=== PATIENT | female | born 1965 | race Caucasian/White ===

== ENCOUNTER → 2017-01-04 | Outpatient (CLI) | payer BC, OTHER ==
--- NOTE | 2017-01-04 08:06 | REP ---
PA and lateral chest: Comparison is 04/28/2015. The lung raphael are clear. The cardiac size is normal The mary, mediastinum, and bony thorax are unremarkable. Impression: Negative PA and lateral chest. Surgical clips are again noted in the abdominal right upper quadrant. There is no interval change. Signed by Raf Moran MD 01/04/2017 07:57 A
[2017-01-04 08:09] LABS: MEAN CORPUSCULAR HEMOGLOBIN 31.6 pg (27.0-33.0); MEAN CORPUSCULAR HGB CONC 34.8 g/dl (32.0-36.5); WHITE BLOOD COUNT 11.5 K/mm3 (4.0-10.0)
[2017-01-04 08:42] LABS: ALBUMIN 3.8 GM/DL (3.2-5.2); ALBUMIN/GLOBULIN RATIO 1.23 (1.00-1.93); ALKALINE PHOSPHATASE 73 U/L (45-117); ALT/SGPT 26 U/L (12-78); ANION GAP 5 MEQ/L (8-16); AST/SGOT 12 U/L (15-37); BILIRUBIN,TOTAL 0.6 MG/DL (0.2-1.0); BLOOD UREA NITROGEN 18 MG/DL (7-18); CALCIUM LEVEL 9.2 MG/DL (8.5-10.1); CARBON DIOXIDE LEVEL 28 MEQ/L (21-32); CHLORIDE LEVEL 107 MEQ/L (98-107); CHOLESTEROL LEVEL 249 MG/DL (<200); CREATININE FOR GFR 0.83 MG/DL (0.55-1.02); GLOMERULAR FILTRATION RATE > 60.0 (>51); GLUCOSE, FASTING 127 MG/DL (70-105); POTASSIUM SERUM 4.6 MEQ/L (3.5-5.1); SODIUM LEVEL 140 MEQ/L (136-145); TOTAL PROTEIN 6.9 GM/DL (6.4-8.2); TRIGLYCERIDES LEVEL 154 MG/DL (<150)
--- NOTE | 2017-01-05 13:39 | ECGEPIP ---
Stationary ECG Study [facility] Test Date: 2017-01-04 Pat Name: REAGAN EID Department: Room: - Gender: F [place] Dipper: : 1965 Requested By: Homer Butler Order Number: [id number] Reading MD: Roman Carter Measurements Intervals [place] Rate: 80 P: 64 AK: 155 QRS: 48 QRSD: 90 T: 51 QT: 376 QTc: 435 Interpretive Statements SINUS RHYTHM POSSIBLE LEFT ATRIAL ENLARGEMENT NO CHANGE SINCE 04/28/15 Electronically Signed On 01-05-2017 13:39:08 EDT by Roman Carter
== END ==
LOC: M LAB 07:14
PROVIDERS: ATTEND Family Medicine
DX: E78.5 Hyperlipidemia, unspecified (principal); E03.9 Hypothyroidism, unspecified; E55.9 Vitamin D deficiency, unspecified

== ENCOUNTER → 2018-04-30 | Outpatient (CLI) | payer BC, OTHER ==
[2018-04-30 09:14] LABS: HEMATOCRIT 47.1 % (36.0-47.0); HEMOGLOBIN 16.1 g/dl (12.0-15.5); MEAN CORPUSCULAR HEMOGLOBIN 30.4 pg (27.0-33.0); MEAN CORPUSCULAR HGB CONC 34.2 g/dl (32.0-36.5); MEAN CORPUSCULAR VOLUME 88.9 fl (80.0-96.0); PLATELET COUNT, AUTOMATED 416 10^3/uL (150-450); RED CELL DISTRIBUTION WIDTH 13.2 % (11.5-14.5); WHITE BLOOD COUNT 9.9 10^3/uL (4.0-10.0)
[2018-04-30 09:20] LABS: ESTIMATED AVERAGE GLUCOSE 120 MG/DL (60-110); HEMOGLOBIN A1c 5.8 %
[2018-04-30 09:38] LABS: ALBUMIN/GLOBULIN RATIO 1.25 (1.00-1.93); ALKALINE PHOSPHATASE 86 U/L (45-117); ALT/SGPT 24 U/L (12-78); ANION GAP 6 MEQ/L (8-16); AST/SGOT 12 U/L (7-37); BILIRUBIN,TOTAL 0.8 MG/DL (0.2-1.0); BLOOD UREA NITROGEN 12 MG/DL (7-18); CALCIUM LEVEL 9.8 MG/DL (8.5-10.1); CARBON DIOXIDE LEVEL 29 MEQ/L (21-32); CHLORIDE LEVEL 104 MEQ/L (98-107); CHOLESTEROL LEVEL 278 MG/DL (<200); CHOLESTEROL RISK RATIO 5.791 (<5); CREATININE FOR GFR 0.81 MG/DL (0.55-1.30); GLOMERULAR FILTRATION RATE > 60.0 (>51); GLUCOSE, FASTING 108 MG/DL (70-100); HDL CHOLESTEROL 48 MG/DL (>40); LDL CHOLESTEROL 201 MG/DL (<100); NON-HDL-C 230 MG/DL; POTASSIUM SERUM 4.9 MEQ/L (3.5-5.1); SODIUM LEVEL 139 MEQ/L (136-145); TOTAL PROTEIN 7.2 GM/DL (6.4-8.2); TRIGLYCERIDES LEVEL 146 MG/DL (<150)
[2018-04-30 09:39] LABS: TOTAL 25(OH) VITAMIN D 52.4 NG/ML (30.0-100.0)
== END ==
LOC: M LAB 07:08
DX: J44.9 Chronic obstructive pulmonary disease, unspecified (principal); E03.9 Hypothyroidism, unspecified; R53.83 Other fatigue
CPT/HCPCS: 93005

== ENCOUNTER → 2018-04-30 | Outpatient (CLI) | payer BC, OTHER | LOC: M RAD 07:04 | DX: Z12.31 Encounter for screening mammogram for malignant neoplasm of breast (principal); N60.31 Fibrosclerosis of right breast; N60.32 Fibrosclerosis of left breast | CPT/HCPCS: 71046 ==

== ENCOUNTER 2019-02-12 19:26 | Emergency (ER) | payer BC, OTHER ==
[~2019-02-12] VITALS: Ht 157.5 cm; Wt 68.2 kg
[2019-02-12] MEDS ORDERED: DITR5TAB PO (19:43)
[2019-02-12] MEDS ORDERED: ESTR3TA (19:43)
[2019-02-12] MEDS ORDERED: VITA500045 (19:43)
[2019-02-12] MEDS ORDERED: KETOROLAC TROMETHAMINE 10 MG TAB PO ONE (22:00)
[2019-02-12 23:49] VITALS: BP 172/97
--- NOTE | 2019-02-13 02:25 | REP ---
Clinical: Trauma. Technique: AP, lateral, bilateral oblique views of the left foot. Findings: There is a nondisplaced comminuted fracture at the base of the fifth metatarsal bone with overlying soft tissue swelling. Remainder examination demonstrates normal age-related changes. Impression: Nondisplaced fracture at the base of the fifth metatarsal bone. Electronically Signed by Roby Julien MD 02/13/2019 02:17 A
--- NOTE | 2019-02-13 02:29 | REP ---
Clinical: Trauma. Technique: AP, lateral, bilateral oblique views of the left ankle. Findings: Soft tissue swelling appreciated. There is a fracture at the base of the fifth metatarsal bone. No other fracture dislocation identified. Ankle mortise appears intact. Impression: Ankle swelling Nondisplaced fracture of the fifth metatarsal base. Electronically Signed by Roby Julien MD 02/13/2019 02:20 A
--- NOTE | 2019-02-13 07:22 | ECGEPIP ---
[facility] - ED Test Date: 2019-02-12 Pat Name: REAGAN EID Department: Room: - Gender: Female [employer] Official: JESUS : 1965 Requested By: ROSENDO ARTHUR PA-C Order Number: [id number] Reading MD: Tito Hyde Measurements Intervals [place] Rate: 96 P: 74 PA: 159 QRS: 63 QRSD: 93 T: 45 QT: 352 QTc: 445 Interpretive Statements SINUS RHYTHM POSSIBLE LEFT ATRIAL ENLARGEMENT POSSIBLE LEFT VENTRICULAR HYPERTROPHY SIMILAR TO 04/30/18 Electronically Signed on 02-13-2019 7:21:58 EDT by Tito Hyde
== END 2019-02-12 23:50 | disposition home or self-care (01) ==
LOC: M ED 19:26
DX: S92.355A Nondisplaced fracture of fifth metatarsal bone, left foot, initial encounter for closed fracture (principal); X50.1XXA Overexertion from prolonged static or awkward postures, initial encounter; Y92.480 Sidewalk as the place of occurrence of the external cause; Y99.0 Civilian activity done for income or pay; Z88.5 Allergy status to narcotic agent; F17.210 Nicotine dependence, cigarettes, uncomplicated; Z79.899 Other long term (current) drug therapy; Z79.890 Hormone replacement therapy

== ENCOUNTER → 2023-05-16 | Outpatient (CLI) | payer BC, OTHER ==
[~2023-05-16] MED LIST: DITR5TAB PO; ESTR3TA; VITA500045
== END ==
LOC: M WHC 14:46
PROVIDERS: ATTEND Family Medicine
DX: Z12.31 Encounter for screening mammogram for malignant neoplasm of breast (principal)

== ENCOUNTER → 2023-06-20 | Outpatient (CLI) | payer BC, OTHER ==
[2023-06-20 09:25] LABS: HEMATOCRIT 47.7 % (36.0-47.0); HEMOGLOBIN 16.5 g/dl (12.0-15.5); MEAN CORPUSCULAR HEMOGLOBIN 31.3 pg (27.0-33.0); MEAN CORPUSCULAR HGB CONC 34.6 g/dl (32.0-36.5); MEAN CORPUSCULAR VOLUME 90.5 fl (80.0-96.0); PLATELET COUNT, AUTOMATED 468 10^3/uL (150-450); RED BLOOD COUNT 5.27 10^6/uL (4.00-5.40); WHITE BLOOD COUNT 8.4 10^3/uL (4.0-10.0)
[2023-06-20 09:48] LABS: ALBUMIN 4.1 G/DL (3.2-5.2); ALKALINE PHOSPHATASE 92 U/L (46-116); ALT/SGPT 68 U/L (7.0-40); AST/SGOT 20 U/L (<34); BILIRUBIN,TOTAL 0.8 MG/DL (0.3-1.2); BLOOD UREA NITROGEN 12 MG/DL (9-23); CALCIUM LEVEL 9.8 MG/DL (8.5-10.1); CARBON DIOXIDE LEVEL 29 MMOL/L (20-31); CHLORIDE LEVEL 101 MMOL/L (98-107); CHOLESTEROL LEVEL 232 MG/DL (<200); CHOLESTEROL RISK RATIO 3.97 (<5); CREATININE FOR GFR 0.66 MG/DL (0.55-1.30); GLOMERULAR FILTRATION RATE > 60.0 (>51); GLUCOSE, FASTING 126 MG/DL (60-100); HDL CHOLESTEROL 58.4 MG/DL (>40); LDL CHOLESTEROL 142.4 MG/DL (<100); NON-HDL-C 173.6 MG/DL; POTASSIUM SERUM 3.6 MMOL/L (3.5-5.1); SODIUM LEVEL 137 MMOL/L (136-145); TRIGLYCERIDES LEVEL 156 MG/DL (<150)
[2023-06-20 09:49] LABS: THYROID STIMULATING HORMONE 1.149 uIU/ML (0.55-4.78); TOTAL 25(OH) VITAMIN D 81.4 NG/ML (20.0-100.0)
== END ==
LOC: M RAD 08:13
PROVIDERS: ATTEND Family Medicine
DX: J44.9 Chronic obstructive pulmonary disease, unspecified (principal)

== ENCOUNTER → 2023-07-13 | Outpatient (REF) | payer BC, OTHER | LOC: M LAB REF 09:58 | PROVIDERS: ATTEND Physician Assistant | DX: R30.0 Dysuria (principal) ==

== ENCOUNTER → 2024-01-03 | Outpatient (CLI) | payer BC | LOC: M RAD 14:42 | PROVIDERS: ATTEND Family Medicine | DX: M54.30 Sciatica, unspecified side (principal); M51.36 Other intervertebral disc degeneration, lumbar region ==

== ENCOUNTER 2024-06-18 13:22 | Day surgery (SDC) | payer BC ==
[~2024-06-18] VITALS: Ht 157.5 cm; Wt 68.9 kg
[~2024-06-18 13:22] MED LIST changes: +ERGO500029 PO; +IBUP80TA PO; +OXYB5TAB14 PO; +TRIA37.577 PO; +[UNRECOGNIZED DRUG - CODE] INH; +propofoL 200 MG/20 ML VIAL As Ordered ONE
[2024-06-18] MEDS ORDERED: LIDOCAINE 2% 100MG/5ML SDV (FOR ANES.) As Ordered ONE (13:23)
[2024-06-18 14:05] VITALS: TEMP 98.1
[2024-06-18 14:30] VITALS: BP 145/82; O2SAT 95
== END 2024-06-18 14:37 | disposition home or self-care (01) ==
LOC: M OPP 13:22
PROVIDERS: ATTEND Internal Medicine Gastroenterology
DX: K57.30 Diverticulosis of large intestine without perforation or abscess without bleeding (principal); K64.0 First degree hemorrhoids; Z12.11 Encounter for screening for malignant neoplasm of colon; Z88.5 Allergy status to narcotic agent; I10 Essential (primary) hypertension; F17.220 Nicotine dependence, chewing tobacco, uncomplicated

== ENCOUNTER → 2025-01-07 | Outpatient (CLI) | payer BC ==
[~2025-01-07] MED LIST changes: -propofoL 200 MG/20 ML VIAL As Ordered ONE
[2025-01-07 09:06] LABS: PLATELET COUNT, AUTOMATED 447 10^3/uL (150-450)
[2025-01-07 09:37] LABS: ESTIMATED AVERAGE GLUCOSE 131.0 MG/DL (60-110)
[2025-01-07 09:42] LABS: ALT/SGPT 22 U/L (7.0-40); AST/SGOT 15 U/L (<34); CALCIUM LEVEL 9.8 MG/DL (8.3-10.6); CARBON DIOXIDE LEVEL 30 MMOL/L (20-31); CHLORIDE LEVEL 99 MMOL/L (98-107); CHOLESTEROL LEVEL 276 MG/DL (<200); CHOLESTEROL RISK RATIO 5.13 (<5); CREATININE FOR GFR 0.65 MG/DL (0.55-1.30); GLOMERULAR FILTRATION RATE > 90.0 (>45); LDL CHOLESTEROL 192.6 MG/DL (<100); NON-HDL-C 222.2 MG/DL; POTASSIUM SERUM 4.5 MMOL/L (3.5-5.1); SODIUM LEVEL 136 MMOL/L (136-145); TRIGLYCERIDES LEVEL 148 MG/DL (<150)
== END ==
LOC: M LAB 08:17
PROVIDERS: ATTEND Family Medicine
DX: I10 Essential (primary) hypertension (principal); R53.83 Other fatigue